=== PATIENT | female | born 1960 | race Caucasian/White ===

== ENCOUNTER 2017-03-24 00:40 | Emergency (ER) | payer MEDICARE ==
[~2017-03-24] VITALS: Ht 157.5 cm; Wt 59.0 kg
[~2017-03-24 00:40] MED LIST: ACCU FS; GLIP5TAB13 PO; METFORMIN HYDROCHLORIDE PO; PIOG30TA PO
--- NOTE | 2017-03-24 00:40 | NUR ---
BIB [place] [facility] TO ER BED 8
[2017-03-24 00:48] VITALS: BP 134/100
--- NOTE | 2017-03-24 00:48 | NUR ---
Patient being evaluated by physician at bedside.
--- NOTE | 2017-03-24 00:54 | NUR ---
56 Y/O F AMADOR WILSON FOR PREBOOK CLEARANCE. PT ETOH, MED HX TBA, DM. NO S/S OF DISTRESS NOTED, ER MADE AWARE.
--- NOTE | 2017-03-24 01:00 | NUR ---
ER MD EVALUATING PT AT BEDSIDE.
[2017-03-24] MEDS ORDERED: INSULIN HUMAN REGULAR 100 UNITS/ML 10 ML VIAL SUBQ ONE (01:05)
[2017-03-24 01:25] VITALS: BP 134/100
--- NOTE | 2017-03-24 01:25 | NUR ---
Patient discharged BY DR HAUSER with v/s stable. Written and verbal after care instructions given and explained BY ER MD. Patient alert, oriented and verbalized understanding of instructions. Police with in custody. All questions addressed prior to discharge. ID band removed. Patient advised to follow up with PMD. Rx of METFORMIN AND HUMALOG given. Patient educated on indication of medication including possible reaction and side effects. Opportunity to ask questions provided and answered.
== END 2017-03-24 01:25 ==
LOC: MED 00:40
DX: Z02.89 Encounter for other administrative examinations (principal); F10.129 Alcohol abuse with intoxication, unspecified; E11.9 Type 2 diabetes mellitus without complications; Z88.8 Allergy status to other drugs, medicaments and biological substances; I10 Essential (primary) hypertension
CPT/HCPCS: 96372; 99283; J1815

== ENCOUNTER 2017-08-21 15:36 | Inpatient (IN) | payer MEDICARE ==
[~2017-08-21] VITALS: Ht 149.9 cm; Wt 54.9 kg
--- NOTE | 2017-08-21 15:39 | NUR ---
PT BIBA ON RESTRAINTS FOR ALOC TO BED 10
--- NOTE | 2017-08-21 15:40 | NUR ---
PT BIB AMBULANCE, PT WAS SEEN BY POLICE TRYING TO WALK IN THE MIDDLE OF THE STREET. PT WAS ASKING FOR DIRECTIONS TO [facility], SHE WANTED TO WALK THERE.PT UNABLE TO SAY WHEN SHE HAD EATTEN LAST AND B/S AT THIS TIME IS 535. PT ABLE TO TRANSFER SELF TO [facility]. PT REFUSES TO PUT ON GOWN AND WANTS TO LEAVE. PT IS VISUALLY AND AUDITORILY IMPAIRED.DR GRACIA IS PLACING PT ON A 5150 HOLD AT THIS TIME. Addendum: 08/21/17 at 1603 by [email or web address] PT WAS ALREADY PLACED ON 5150 HOLD WHEN BROUGHT IN BY AMBULANCEDUE TO [facility] AND ENDAGERING HERSELF
[2017-08-21 15:44] VITALS: BP 172/92
--- NOTE | 2017-08-21 16:10 | NUR ---
ambulatory with help to restroom steady gait---
[2017-08-21] MEDS: NACL 0.9% 1,000 ML IV SCH ×2 (16:17→22:23)
--- NOTE | 2017-08-21 16:17 | NUR ---
returned from restroom ambulatory unassisted, steady gait
[2017-08-21] MEDS ORDERED: ONDANSETRON 4 MG/2 ML VIAL IVP PRN (16:20)
[2017-08-21] MEDS ORDERED: ACETAMINOPHEN 325 MG TAB PO PRN (16:20)
--- NOTE | 2017-08-21 16:21 | NUR ---
PT ABLE TO AMBULATE WITH ASSISTANCE AND PROVIDED URINE. SHE HAS BEEN ABLE TO TELL STAFF HER NAME WHERE SHE IS AND WHAT TIME OF DAY.
--- NOTE | 2017-08-21 16:29 | NUR ---
ATTEMPTED TO PERFORM AN EKG ON THE PT. PT STATED SHE DID NOT WANT ME TO PERFORM EKG ON HER. ASKED PT IF SHE WOULD BE MORE COMFORTABLE IF A FEMALE PERFORMED THE EKG ON HER AND SHE STATED THAT SHE DOES NOT WANT THE EKG TO BE PERFORMED BY ANYBODY.
[2017-08-21] MEDS ORDERED: LISINOPRIL 20 MG TAB PO SCH (16:30)
[2017-08-21 16:33] LABS: APPEARANCE,URINE CLEAR (CLEAR); BILIRUBIN,URINE NEGATIVE (NEGATIVE); BLOOD, URINE NEGATIVE (NEGATIVE); LEUKOCYTE ESTERASE ,URINE NEGATIVE (NEGATIVE); NITRITE, URINE NEGATIVE (NEGATIVE); UGLUCOSE 3+ (NEGATIVE)
[2017-08-21 16:40] LABS: BARBITURATE, URINE NEG. ng/ml (NEG <=200); BENZODIAZEPINE, URINE NEG. ng/mL (NEG <=200); CANNABINOID, URINE NEG. ng/mL (NEG <=50); COCAINE, URINE NEG. ng/mL (NEG <=300); OPIATE, URINE NEG. ng/mL (NEG <=2000); PHENCYCLIDINE SCREEN,URINE NEG. ng/mL (NEG <=25)
[2017-08-21 16:50] LABS: COLOR,URINE STRAW (YELLOW)
[2017-08-21] MEDS ORDERED: DEXTROSE 50% 50 ML SYR IVP PRN (17:10)
[2017-08-21] MEDS ORDERED: MECLIZINE 25 MG TAB PO PRN (17:10)
--- NOTE | 2017-08-21 17:33 | NUR ---
PT REFUSES IV INSERTION, ASKED X2 AND STILLL REFUSES
[2017-08-21 17:45] VITALS: BP 141/67
--- NOTE | 2017-08-21 17:45 | NUR ---
PATIENT ARRIVED ON MST UNIT FROM ER BED/RWINDSOR. ABLE TO AMBULATE WITH ASSIST AND ROLLATOR AT BEDSIDE. NO DISTRESS NOTED. RESPIRATIONS EVEN, UNLABORED, ON ROOM AIR. AAOX3, AGITATED MOOD, VERBALLY ABUSIVE. SKIN COLOR APPROPRIATE TO ETHNICITY, WARM TO TOUCH. SKIN IS INTACT. ABDOMEN SOFT, NON-DISTENDED. NO IV SITE DUE TO PATIENT REFUSING PER ER NURSE REPORTS. BLOOD SUGAR CHECKED AND IT WAS 562. HUMALOG INSULIN GIVEN 20 UNITS VIA SUB-Q ON LUARM PER MD ORDERS AND CO-SIGNED BY CARLYLE MCMULLEN. ORIENTED PATIENT TO ROOM AND CALL LIGHT. REVIEWED PLAN OF CARE WITH PATIENT. PATIENT VERBALIZED UNDERSTANDING. REINFORCEMENT NEEDED. SAFETY MEASURES IN PLACE, CALL LIGHT WITHIN REACH. WILL CONTINUE TO MONITOR.
--- NOTE | 2017-08-21 17:49 | NUR ---
Patient will be admitted to care of DR MORRISON. Admited to TELE. Will go to room 107A. Belongings list completed. Report to CHARLEY TADEO.
--- NOTE | 2017-08-21 18:30 | NUR ---
RADIOLOGIST AT BEDSIDE PERFORMING ULTRASOUNDS. WILL CONTINUE TO MONITOR.
--- NOTE | 2017-08-21 19:34 | NUR ---
ABG not done because patient refused and is currently combative and argumentative. Patient stable on room air SP02 96 heart rate 102. No resp distress. RN and Doctor notified and aware.
--- NOTE | 2017-08-21 19:35 | NUR ---
GAVE REPORT TO SORTING MACHINE OPERATOR NURSE FOR CONTINUITY OF CARE. PATIENT IN STABLE CONDITION.
--- NOTE | 2017-08-21 19:35 | NUR ---
RECEIVED REPORT FROM DAY SHIFT NURSE CHARLEY-RN. PT ON 5150 HOLD. NEEDING TO BE CHANGED TO ROOM 109B. PT AOX3-CONFUSED AND VERBALLY ABUSING. AMBULATORY WITH ROLEATOR. SKIN INTACT. PT REFUSED IV, ON ROOM AIR. ON CCHO 60 DIET. CURRENTLY RECEIVING ULTRASOUND AT BEDSIDE. NO S/S OF RESPIRATORY DISTRESS OR DISCOMFORT NOTED AT THIS TIME. WILL CONTINUE TO MONITOR.
--- NOTE | 2017-08-21 19:50 | NUR ---
CODE HARRISON. PT YELLING AND CURSING AT STAFF NOT WANTING TO BE IN NEW ROOM BECAUSE THERE IS NO TV. PT WHEELED HER BELONGINGS ON ROLEATER WALKER BACK TO OLD BEDROOM. SECURITY WAS CALLED TO HELP HANDLE THE SITUATION. DOCTOR NOTIFIED. RX NICHOLAS.
[2017-08-21] MEDS ORDERED: HALOPERIDOL IM 5 MG/ML VIAL IM ONE ×2 (19:55→20:20)
--- NOTE | 2017-08-21 19:55 | NUR ---
PT ON RESTRAINTS. WILL CONTINUE TO MONITOR.
--- NOTE | 2017-08-21 20:00 | NUR ---
PT ALSO REFUSING EKG LEADS TO BE MONITORED WHILE ON TELE UNIT. WILL CONTINUE TO MONITOR.
--- NOTE | 2017-08-21 20:00 | NUR ---
PT REFUSING MEDICATION. PT REFUSING VITAL SIGNS. PT REFUSING IV. PT REFUSING LAB DRAW (PRINTER SLOTTER HELPER AND CBC) REQUESTED BY DR. DAVEY.
[2017-08-21] MEDS ORDERED: HALOPERIDOL IM 5 MG/ML VIAL ONE (20:01)
[2017-08-21] MEDS: DOCUSATE SODIUM 100 MG GELCAP PO SCH (20:31)
--- NOTE | 2017-08-21 21:00 | NUR ---
PT NO LONGER ON RESTRAINTS. PT TOLERATED WELL. NO INJURIES. WILL CONTINUE TO MONITOR.
--- NOTE | 2017-08-21 21:30 | NUR ---
PT STILL REFUSING SCHEDULED MEDICATIONS. LAB WAS IN HER ROOM AND WAS UNSUCCESSFUL AT LAB DRAW. PT REMOVED BOTH NEEDLES AFTER AGREEING TO THE LAB DRAW. WILL CONTINUE TO MONITOR.
[2017-08-21] MEDS: BLOOD GLUCOSE MONITORING 1 DEV DEV FS SCH (21:47)
[2017-08-21] MEDS ORDERED: HALOPERIDOL IM 5 MG/ML VIAL IM PRN (22:15)
--- NOTE | 2017-08-22 | NUR ---
PT REFUSED VITAL SIGNS. LAB ASKED AGAIN IF SHE COULD TAKE BLOOD DRAW AND PT REFUSED STATING, "I WANT TO GO TO SLEEP." WILL CONTINUE TO MONITOR.
--- NOTE | 2017-08-22 01:10 | NUR ---
PT SLEEPING AT THIS TIME BUT EASILY TO AROUSE.
[2017-08-22] MEDS: NACL 0.9% 1,000 ML IV SCH ×5 (03:23→23:23)
--- NOTE | 2017-08-22 03:30 | NUR ---
PT CONTINUES TO SLEEP. WILL CONTINUE TO MONITOR.
[2017-08-22 04:00] VITALS: BP 141/78
--- NOTE | 2017-08-22 04:00 | NUR ---
AMBULATED PT WITH ASSIST TO USE RESTROOM. VITAL SIGNS TAKEN. PT TOLERATED WELL DESPITE SAYING THAT THE BP CUFF WAS TOO TIGHT WHILE THE AUTOMATIC MACHINE WAS TAKING HER BP. PT STILL REFUSES, IV, LAB WORK, AND EKG LEADS. PT WENT BACK TO BED TO SLEEP. WILL CONTINUE TO MONITOR.
[2017-08-22] MEDS: BLOOD GLUCOSE MONITORING 1 DEV DEV FS SCH ×5 (06:40→21:07)
--- NOTE | 2017-08-22 06:41 | NUR ---
BLOOD GLUCOSE 360. PT REFUSED INSULIN COVERAGE. WILL CONTINUE TO MONITOR.
--- NOTE | 2017-08-22 07:28 | NUR ---
ENDORSED PT CARE TO DAY SHIFT NURSE KAYLEIGH. PT IN STABLE CONDITION.
--- NOTE | 2017-08-22 07:29 | NUR ---
RECEIVED REPORT FROM PM NURSE. PT SITTING ON BED WITH BREAKFAST TRAY IN FRONT. AOX2. COOPERATIVE AT THIS TIME.SKIN INTACT. NO IV SITE DUE TO PT REFUSAL. REFUSES AM LAB DRAWS. NO THOUGHTS OF HARMING SELF AT THIS TIME. REVIEW PLAN OF CARE WITH PT. SAFETY MEASURES IN PLACE, 1:1 SITTER AT BEDSIDE. WILL CONTINUE TO MONITOR.
[2017-08-22 08:00] VITALS: BP 124/62
[2017-08-22 08:26] LABS: EOSINOPHILS # (AUTO) 0.1 K/uL (0-0.4); LYMPHOCYTES # (AUTO) 0.9 K/uL (2.5-16.5); MONOCYTES # (AUTO) 0.4 K/uL (0.8-1.0)
[2017-08-22 08:37] LABS: BASOPHILS # (AUTO) 0.1 K/uL (0.00-0.22); BASOPHILS % (AUTO) 2.4 % (0.0-2.0); EOSINOPHILS % (AUTO) 1.2 % (0.0-4.0); HEMATOCRIT 40.2 % (36-48); HEMOGLOBIN 13.5 g/dL (12.0-16.0); MEAN CORPUSCULAR HEMOGLOBIN 30 pg (27-31); MEAN CORPUSCULAR HGB CONC 34 g/dL (33-37); MEAN CORPUSCULAR VOLUME 90.1 fL (80-94); MONOCYTES % (AUTO) 6.9 % (1.7-9.3); NEUTROPHILS % (AUTO) 73.8 % (42.2-75.2); RED BLOOD CELL COUNT(AUTO) 4.46 MIL/uL (4.20-5.40); WHITE BLOOD COUNT (AUTO) 5.5 K/uL (4.8-10.8)
[2017-08-22 08:46] LABS: ANION GAP 12.7 (8-16); CARBON DIOXIDE 22.2 mmol/L (21-32); CREATININE 0.7 mg/dL (0.6-1.3); POTASSIUM 3.9 mmol/L (3.5-5.1)
[2017-08-22] MEDS: DOCUSATE SODIUM 100 MG GELCAP PO SCH ×2 (09:00→20:54)
[2017-08-22 09:02] LABS: LYMPHOCYTES % (AUTO) 15.7 % (20.5-51.1); PLATELET COUNT (AUTO) 102 K/uL (140-450)
[2017-08-22 09:21] LABS: MAGNESIUM 1.5 mg/dL (1.8-2.4); PHOSPHORUS 3.3 mg/dL (2.5-4.9)
[2017-08-22] MEDS: metFORMIN 850 MG TAB PO SCH ×2 (10:13→18:25)
[2017-08-22] MEDS: LISINOPRIL 20 MG TAB PO SCH (10:15)
--- NOTE | 2017-08-22 10:23 | NUR ---
PT AGITATED MOOD. REFUSED STOOL SOFTENER. TWO OTHER SCHEDULED MEDICATION ADMINISTERED.PT REFUSES ULTRA ABD TODAY, DO NOT WANT TO SKIP LUNCH. SCHEDULED FOR TOMORROW MORNING IN FIRST HOUR. PT EXPLAINED TO BE KEPT NPO AFTER MIDNIGHT FOR ULTRASOUND. PT AGREED AND VERBALIZED THE UNDERSTANDING. PT WITH 1:1 SITTER. PT SAFETY MEASURE IN PLACE. WILL CONTINUE TO MONITOR.
[2017-08-22] MEDS ORDERED: MAG SULF 2000 MG/WATER PREMIX 100 ML IV SCH (11:30)
--- NOTE | 2017-08-22 11:57 | NUR ---
PATIENT HAS BEEN SCREENED AND CATEGORIZED MODERATE NUTRITION RISK. PATIENT WILL BE SEEN WITHIN 3-5 DAYS OF ADMISSION. 08/24/17 - 08/26/17 LIZ SAENZ MBA, RD
--- NOTE | 2017-08-22 12:30 | NUR ---
PATIENT SITTING IN BED WITH LUNCH TRAY IN FRONT. NO DISTRESS NOTED. IN AGITATED MOOD AND VERBALLY ABUSIVE. CURRENTLY REFUSES VITAL SIGNS TAKEN UNTIL SHE FINISHES HER LUNCH. WILL CONTINUE TO MONITOR.
--- NOTE | 2017-08-22 13:06 | NUR ---
RADIOLOGIST AT BEDSIDE PERFORMING SCANS. PATIENT COOPERATIVE AT THIS TIME. WILL CONTINUE TO MONITOR.
[2017-08-22 13:30] LABS: ALBUMIN 2.8 g/dL (3.4-5.0); BILIRUBIN,DIRECT 0.2 mg/dL (0.0-0.3); TOTAL BILIRUBIN 0.7 mg/dL (0.0-1.0)
[2017-08-22] MEDS ORDERED: MAGNESIUM OXIDE 400 MG TAB PO SCH (13:30)
[2017-08-22] MEDS: INSULIN LISPRO SLIDING SCALE 100 UNITS/ML VIAL SUBQ PRN ×3 (14:19→21:05)
--- NOTE | 2017-08-22 15:00 | NUR ---
PATIENT LYING IN BED. NO DISTRESS NOTED. CONTINUES TO BE IN AGITATED MOOD. CONDITION UNCHANGED. 1:1 SITTER AT BEDSIDE. WILL CONTINUE TO MONITOR.
[2017-08-22 16:00] VITALS: BP 143/63
--- NOTE | 2017-08-22 17:30 | NUR ---
PATIENT LYING IN BED SLEEPING, AROUSABLE BY VOICE. NO DISTRESS NOTED. DENIES ANY PAIN. CONDITION UNCHANGED. WILL CONTINUE TO MONITOR.
--- NOTE | 2017-08-22 19:20 | NUR ---
ENDORSED TO PM NURSE. PT IN STABLE CONDITION.
--- NOTE | 2017-08-22 19:21 | NUR ---
Patient's Plan of Care was discussed and reviewed with NEWS PHOTOGRAPHER: CATIE CLEMONS
--- NOTE | 2017-08-22 19:21 | NUR ---
RECD. SLEEPING COMFORTABLY IN BED, RESPIRATION EVEN AND UNLABORED. NO AGITATION NOTED. NO APPEARANCE OF DISCOMFORT, 0. 1:1 SITTER NEAR DOOR MONITORING PATIENT BEHAVIOR. WILL CONTINUALLY MONITOR PATIENT AND ENSURE SAFETY THROUGHOUT THE SHIFT.
--- NOTE | 2017-08-22 19:45 | NUR ---
WOKE UP AND REQUESTED A BLANKET FROM SITTER AND WENT BACK TO SLEEP. WAKEN UP AND PLAN OF CARE FOR THE SHIFT DISCUSSED. AGREED BUT REFUSED VITAL SIGNS TO BE TAKEN, WANTS LATER.
[2017-08-22] MEDS: QUEtiapine FUMARATE 25 MG TAB PO SCH (20:51)
--- NOTE | 2017-08-22 21:05 | NUR ---
DUE PO MEDICATIONS GIVEN BUT REFUSED INSULIN COVERAGE,STATED SHE HAD ALREADY TWICE, EXPLAINED THAT IS DIFFERENT DOES NOT ACCEPT ANY EXPLANATION, STILL REFUSING.
--- NOTE | 2017-08-22 21:46 | NUR ---
SLEEPING COMFORTABLY IN BED.
[2017-08-23] VITALS: BP 138/69
--- NOTE | 2017-08-23 01:30 | NUR ---
AWAKE, FIXING HER GOWN AND BRASSIERE, REFUSED TO BE HELP, SAYING BAD WORDS.
--- NOTE | 2017-08-23 03:00 | NUR ---
INQUIRED TO ANDREA OF RADIOLOGY WHAT TIME WILL THE US OF ABDOMEN BE DONE TODAY, STATED AT 0630.
[2017-08-23] MEDS: NACL 0.9% 1,000 ML IV SCH ×4 (04:23→20:37)
[2017-08-23] MEDS: BLOOD GLUCOSE MONITORING 1 DEV DEV FS SCH ×4 (05:24→20:38)
[2017-08-23] MEDS: INSULIN LISPRO SLIDING SCALE 100 UNITS/ML VIAL SUBQ PRN ×3 (05:26→17:57)
--- NOTE | 2017-08-23 05:26 | NUR ---
REFUSED INSULIN COVERAGE AT FIRST BUT AFTER A WHILE, AGREED.
--- NOTE | 2017-08-23 05:35 | NUR ---
REFUSED AM LAB DRAW BY [employer]. STATED SHE'S GOING HOME TOMORROW.
--- NOTE | 2017-08-23 06:26 | NUR ---
STILL SLEEPING COMFORTABLY, CONDITION REMAIN STABLE. WILL ENDORSE TO AM NURSE FOR CONTINUITY OF CARE.
--- NOTE | 2017-08-23 06:35 | NUR ---
ADOLFO CAME TO DO THE COMPLETE US OF ABDOMEN BUT PATIENT REFUSED. WILL INFORM .
--- NOTE | 2017-08-23 06:40 | NUR ---
VERBALLY ABUSIVE, CALLING NURSES BITCH. DARING NURSE TO CALL THE POLICE.
--- NOTE | 2017-08-23 06:48 | NUR ---
INFORMED DR. DAVEY, PATIENT REFUSED US OF ABDOMEN AND BLOOD DRAW THIS MORNING.
--- NOTE | 2017-08-23 07:00 | NUR ---
WENT BACK TO SLEEP IN BED.
--- NOTE | 2017-08-23 07:20 | NUR ---
ENDORSED TO AM NURSES FOR CONTINUITY OF CARE.
--- NOTE | 2017-08-23 07:21 | NUR ---
RECEIVED REPORT FROM PM NURSE AT [facility]. PT AOX3. PT IN GOOD MOOD. COOPERATIVE , CALM AT THE TIME. SAFETY MEASURES IN PLACE. WILL CONTINUE TO MONITOR.
[2017-08-23 08:00] VITALS: BP 149/68
--- NOTE | 2017-08-23 09:05 | NUR ---
PT ADMINISTERED SCHEDULED PO MEDICATION. REFUSED HER MEDICATION EARLIER. PT REFUSES IVF. PT COOPERATIVE AND CALM AT THE TIME. WILL CONTINUE TO MONITOR.
[2017-08-23] MEDS: DOCUSATE SODIUM 100 MG GELCAP PO SCH ×2 (09:06→20:42)
[2017-08-23] MEDS: LISINOPRIL 20 MG TAB PO SCH (09:06)
[2017-08-23] MEDS: metFORMIN 850 MG TAB PO SCH ×2 (09:07→17:57)
--- NOTE | 2017-08-23 12:45 | NUR ---
CM NOTE CLINICAL INFORMATION FAXED TO [facility] / FAX# [phone], C: [phone]
--- NOTE | 2017-08-23 14:41 | NUR ---
CM NOTE INITIAL REVIEW FAXED TO [facility] / FAX# [phone], C: #[phone]
[2017-08-23 16:00] VITALS: BP 147/67
--- NOTE | 2017-08-23 17:12 | NUR ---
PATIENT REQUESTING TO SHOWER. SHAWNA FRAESR TOOK HER TO DESIGNATED SHOWER VIA WHEELCHAIR, AND WILL ASSIST PATIENT WITH STANDBY ASSISTANCE IN SHOWER.
--- NOTE | 2017-08-23 19:18 | NUR ---
ENDORSED PATIENT TO COFFEE MAKER RN FOR CONTINUITY OF CARE. PATIENT IN STABLE CONDITION.
--- NOTE | 2017-08-23 19:25 | NUR ---
RECEIVED REPORT FROM DAY SHIFT RN, PATIENT RESTING IN BED, AWAKE AND RESPONSIVE, ONE ON ONE SITTER SITTING OUTSIDE THE ROOM. NO IV ACCESS NOTED, PATIENT REFUSED IV WHEN I OFFERED TO START NEW IV. PATIENT IS CALM AT THIS MOMENT. SAFETY MEASURE ENSURED ,WILL CONTINUE TO MONITOR.
[2017-08-23] MEDS: QUEtiapine FUMARATE 25 MG TAB PO SCH (20:41)
--- NOTE | 2017-08-23 20:46 | NUR ---
BLOOD SUGAR 371, PATIENT REFUSED HUMALOG. EDUCATED ON THE COMPLICATION OF HYPERGLYCEMIA, BUT PATIENT STILL REFUSED, AND YELLED," LOOK, I DON'T WANT IT." DR. MARTINEZ NOTIFIED. WILL CONTINUE TO MONITOR.
[2017-08-24] VITALS: BP 150/81
[2017-08-24] MEDS: NACL 0.9% 1,000 ML IV SCH ×5 (00:23→20:23)
--- NOTE | 2017-08-24 00:38 | NUR ---
PATIENT RESTING IN BED, NO S/S OF DISTRESS NOTED, 1:1 SITTER BY THE DOOR. SAFETY MEASURE ENSURED, WILL CONTINUE TO MONITOR.
--- NOTE | 2017-08-24 02:35 | NUR ---
PATIENT IS SLEEPING, NO S/S OF DISTRESS NOTED, RESPIRATION EVEN AND UNLABORED, 1:1 SITTER SITTING BY THE DOOR. SAFETY MEASURE ENSURED, WILL CONTINUE TO MONITOR.
--- NOTE | 2017-08-24 03:12 | NUR ---
at this time there are no vacancy at any of the facilities packet was faxed to , the following facilities are [facility] , [facility] , and [facility] RN made aware. Will continue calling thru the shift for placement.
--- NOTE | 2017-08-24 04:25 | NUR ---
NO CHANGE IN CONDITION, PATIENT IS SLEEPING, NO S/S OF DISTRESS NOTED, RESPIRATION EVEN AND UNLABORED, 1:1 SITTER SITTING BY THE DOOR. SAFETY MEASURE ENSURED, WILL CONTINUE TO MONITOR.
--- NOTE | 2017-08-24 06:09 | NUR ---
PATIENT REFUSED BLOOD SUGAR CHECK, EDUCATED ON THE COMPLICATION OF HYPERGLYCEMIA AND HYPOGLYCEMIA, PATIENT YELLED AT ME," GET OUT, I DON'T WANT IT. I DON'T LIKE YOU IN MY ROOM. GET OUT." DR. MARTINEZ IS AWARE. 1:1 SITTER IS SITTING BY THE DOOR. SAFETY MEASURE ENSURED, WILL CONTINUE TO MONITOR.
[2017-08-24] MEDS: BLOOD GLUCOSE MONITORING 1 DEV DEV FS SCH ×4 (07:18→20:53)
--- NOTE | 2017-08-24 07:18 | NUR ---
BLOOD SUGAR 340, BUT PATIENT REFUSED INSULIN. EDUCATED ON THE COMPLICATIONS BUT PATIENT STILL REFUSED. WILL CONTINUE TO MONITOR.
--- NOTE | 2017-08-24 07:20 | NUR ---
ENDORSED PLAN OF CARE TO DAY SHIFT RN. PATIENT IS IN STABLE CONDITION.
--- NOTE | 2017-08-24 07:20 | NUR ---
RECEIVED BEDSIDE REPORT FROM NIGHTSHIFT NURSE AT BEDSIDE. PATIENT PRESENTS IN RIGHT LATERAL LYING POSITION. PATIENT AROUSABLE TO NAME BUT IS ASLEEP. PATIENT HAS NO IV ACCESS. PATIENT SHOWS NO SIGNS OF RESPIRATORY DISTRESS OR RESPIRATORY DEPRESSION. NO SIGNS OF PAIN AT THIS TIME. PATIENT'S BED IN LOWEST POSITION. PATIENT HAS 1:1 SITTER. UPDATED BOARD IN PATIENTS ROOM AND APPROPRIATE SIGNS PLACED OUTSIDE OF PATIENT'S ROOM. PATIENT'S ROOM LOCATED NEAR NURSING STATION. WILL CONTINUE TO MONITOR PATIENT.
[2017-08-24 08:00] VITALS: BP 140/76
--- NOTE | 2017-08-24 08:41 | NUR ---
PATIENT TOOK GLUCOPHAGE AM MEDICATION. PATIENT REFUSED COLACE AND LISINOPRIL. WILL CONTINUE TO MONITOR PATIENT.
[2017-08-24] MEDS: metFORMIN 850 MG TAB PO SCH ×2 (08:49→17:04)
[2017-08-24] MEDS: LISINOPRIL 20 MG TAB PO SCH (08:51)
[2017-08-24] MEDS: DOCUSATE SODIUM 100 MG GELCAP PO SCH ×2 (08:51→20:53)
--- NOTE | 2017-08-24 09:33 | NUR ---
No beds available at this time. Will continue to follow up.
--- NOTE | 2017-08-24 09:46 | NUR ---
PATIENT AWAKE AT THIS TIME. PATIENT DOES NOT COMPLAIN OF PAIN. PATIENT IN HIGH FOWLERS POSITION IN BED. WILL CONTINUE TO MONITOR PATIENT.
--- NOTE | 2017-08-24 10:23 | NUR ---
PATIENT HAS NO IV ACCESS. DID NOT ADMINISTER ANY FLUIDS.
--- NOTE | 2017-08-24 11:28 | NUR ---
MARY FROM [facility] CALLED AND STATED THAT SHE WILL INFORM DR. BROWN FOR THE PSYCH REEVALUATION.
--- NOTE | 2017-08-24 11:35 | NUR ---
PATIENT IS LAYING IN BED AT THIS TIME. NO COMPLAINTS OF PAIN OR ANY SIGNS OF RESPIRATORY DISTRESS OR RESPIRATORY DEPRESSION. WILL CONTINUE TO MONITOR PATIENT.
--- NOTE | 2017-08-24 13:12 | NUR ---
PATIENT'S BLOOD SUGAR IS 513. PATIENT REFUSED INSULIN FOR HER HIGH BLOOD SUGAR. NOTIFIED DR. MUÑIZ WILL SEE PATIENT. WILL CONTINUE TO MONITOR PATIENT.
[2017-08-24] MEDS ORDERED: metFORMIN 850 MG TAB PO SCH (13:37)
--- NOTE | 2017-08-24 13:45 | NUR ---
ADMINISTERED GLUCOPHAGE 850 MG TO PATIENT. WILL REASSESS PATIENT'S BLOOD SUGAR.
--- NOTE | 2017-08-24 15:30 | NUR ---
PATIENT RESTING IN BED. NO COMPLAINTS OF PAIN. NO RESPIRATORY DISTRESS OR RESPIRATORY DEPRESSION.
[2017-08-24 16:00] VITALS: BP 116/70
[2017-08-24] MEDS ORDERED: PIOGLITAZONE 30 MG TAB PO SCH (16:29)
--- NOTE | 2017-08-24 16:55 | NUR ---
DR. BROWN SAW PATIENT. DR. BROWN NOTES READ THAT PATIENT DOES NOT MEET CRITERIA FOR 5150 HOLD. WAITING FOR MEDICAL CLEARANCE AND PLACEMENT FOR PATIENT.
[2017-08-24] MEDS: glipiZIDE 5 MG TAB PO SCH (17:04)
--- NOTE | 2017-08-24 17:04 | NUR ---
PATIENT'S BLOOD SUGAR IS AT BS 404. ADMINISTERED METFORMIN, GLUCOTROL, AND ACTOS. PATIENT TOLERATED WELL. WILL REASSESS PATIENT'S BLOOD SUGAR.
--- NOTE | 2017-08-24 19:22 | NUR ---
GAVE REPORT TO NIGHTSHIFT NURSE AT BEDSIDE. PATIENT IN STABLE CONDITION.
--- NOTE | 2017-08-24 19:23 | NUR ---
RECEIVED REPORT FROM DAY NURSE, PT IN STABLE CONDITION. NO S/S OF DISTRESS NOTED. PT IS ON RA. NO IV ACCESS AT THIS TIME, PT REFUSING. SKIN WARM AND DRY TO TOUCH, COLOR WNL. RR EVEN/UNLABORED. INITIAL ASSESSMENT COMPLETED, PLAN OF CARE DISCUSSED WITH PT, ALL SAFETY PRECAUTIONS MET, CALL LIGHT WITHIN REACH, WILL CONTINUE TO MONITOR.
[2017-08-24] MEDS: QUEtiapine FUMARATE 25 MG TAB PO SCH (20:53)
--- NOTE | 2017-08-24 20:54 | NUR ---
PTS BS 412, INFORMED DR. MARTINEZ PER SLIDING SCALE ORDERS. PT REFUSING ANY INSULIN OR MEDS AT THIS TIME. PT STATES, "I DON'T TAKE ANY NIGHT TIME MEDS, GET THE HELL OUT OF MY ROOM, YOU KNOW THIS, MY BLOOD SUGAR IS NOT HIGH, GET OUT NOW." PT VISIBLY AGITATED. MADE DR. MARTINEZ AWARE OF PTS REFUSAL
--- NOTE | 2017-08-24 20:55 | NUR ---
PT EDUCATED ON RISKS OF NOT TAKING MEDICATION WELL BENEFITS, PT STATES, "I DON'T CARE, NOTHING IS WRONG WITH ME, LET ME SLEEP."
--- NOTE | 2017-08-24 21:15 | NUR ---
DR. MARTINEZ IN TO SEE PT. SHE INFORMED PT SHE NEEDS TO TAKE INSULIN BECAUSE HER BS IS NOT CONTROLLED. PT STILL REFUSING AT THIS TIME AND WILL NOT TAKE ANYTHING TONIGHT
[2017-08-25] VITALS: BP 102/69
--- NOTE | 2017-08-25 | NUR ---
NO S/S OF DISTRESS NOTED. RR EVEN/UNLABORED. VSS. WILL CONTINUE TO MONITOR
[2017-08-25] MEDS: NACL 0.9% 1,000 ML IV SCH ×5 (01:23→21:15)
--- NOTE | 2017-08-25 03:12 | NUR ---
NO S/S OF DISTRESS NOTED. RR EVEN/UNLABORED. VSS. WILL CONTINUE TO MONITOR
--- NOTE | 2017-08-25 05:54 | NUR ---
IN TO CHECK PTS BS WITH DR. MARTINEZ. PT AGREED TO LET ME, WHEN I ATTEMPTED TO PUT BLOOD ON THE STRIP PT TOOK HER HAND BACK AND AND STATED, "FUCK YOU, GET OUT." PT REFUSED TO LET ME CHECK IT AND PT REFUSES MORNING MEDICATION. DR. MARTINEZ ATTEMPTED TO TALK TO PT BUT PT CONTINUES TO YELL, "FUCK YOU, GET OUT."
[2017-08-25] MEDS: glipiZIDE 5 MG TAB PO SCH ×2 (06:30→16:37)
[2017-08-25] MEDS: BLOOD GLUCOSE MONITORING 1 DEV DEV FS SCH ×4 (06:30→21:05)
--- NOTE | 2017-08-25 07:14 | NUR ---
REPORT GIVEN TO DAY NURSE FOR CONTINUITY OF CARE, PT IN STABLE CONDITION.
--- NOTE | 2017-08-25 07:14 | NUR ---
RECEIVED REPORT FROM NIGHTSHIFT NURSE AT BEDSIDE. PATIENT IS ASLEEP AT THIS TIME. PATIENT AROUSABLE TO NAME. PATIENT DOES NOT WANT TO BE BOTHERED AT THIS TIME. PATIENT SHOWS NO SIGNS OF RESPIRATORY DISTRESS OR RESPIRATORY DEPRESSION. WILL ATTEMPT TO CHECK BLOOD GLUCOSE WHEN PATIENT WAKES UP. UPDATED BOARD IN PATIENT'S ROOM. WILL CONTINUE TO MONITOR THE PATIENT.
[2017-08-25 08:00] VITALS: BP 126/63
--- NOTE | 2017-08-25 08:31 | NUR ---
CM NOTE CONCURRENT REVIEW FAXED TO [facility] / FAX# [phone], PH# [phone] [address] EXT [phone]T [phone]
--- NOTE | 2017-08-25 08:33 | NUR ---
PATIENT BLOOD GLUCOSE AT 318. WILL PREPARE PATIENT'S BLOOD GLUCOSE MEDICATION. PATIENT DOES NOT WANT INSULIN. WILL CONTINUE TO MONITOR PATIENT.
[2017-08-25] MEDS: LISINOPRIL 20 MG TAB PO SCH (08:50)
[2017-08-25] MEDS: PIOGLITAZONE 30 MG TAB PO SCH (08:50)
[2017-08-25] MEDS: metFORMIN 850 MG TAB PO SCH ×2 (08:50→16:37)
[2017-08-25] MEDS: DOCUSATE SODIUM 100 MG GELCAP PO SCH ×2 (09:00→21:09)
--- NOTE | 2017-08-25 11:53 | NUR ---
[address] MET [address] PT [address] DR MOE PRESENT. PT STATED WANTED TO SIGN AMA AND WHEN DR MOE INSTRUCTED PT ON RISKS AND CONSEQUENCES OF SIGNING AMA WITH ELEVATED BLOOD SUGAR AND HER REFUSAL TO HAVE INSULIN ADMINISTERED PT STATED THAT SHE WOULD ALLOW THE INSULIN TO BE ADMINISTERED. DISCUSSED WITH PT THAT SHE WILL NEED TO LEARN HOW TO CHECK HER BLOOD SUGAR AND HOW TO ADMINISTER THE INSULIN AND PT STATED THAT SHE WOULD. DISCUSSED WITH HER THAT IT MAY TAKE HER SOME TIME TO LEARN ABOUT DM AND TO GET HER BLOOD SUGAR DOWN TO A THERAPEUTIC LEVEL AND THAT I WOULD CONTACT INSURANCE REGARDING TRANSFER TO SNF TO CONTINUE WITH DIABETIC TEACHING AND MANAGEMENT AND PT IS AGREEABLE AT THIS TIME.
--- NOTE | 2017-08-25 11:54 | NUR ---
PATIENT RESTING IN BED AT THIS TIME. NO COMPLAINTS OF PAIN. WILL CONTINUE TO MONITOR PATIENT.
--- NOTE | 2017-08-25 11:56 | NUR ---
PATIENT REFUSED INSULIN. PATIENT BLOOD SUGAR IS 380. WILL NOTIFY DRHerb WILL CONTINUE TO MONITOR PATIENT.
--- NOTE | 2017-08-25 14:30 | NUR ---
ROWENA HUNT SPOKE WITH LUCAS ODONNELL CM [place] PH# [phone] EXT [phone] REGARDING POSSIBLE SNF PLACEMENT FOR DIABETIC MANAGEMENT AND SHE SAID THAT THIS WILL BE A HARD PLACEMENT BECAUSE OF PATIENT'S BEHAVIORAL ISSUES. PER LUCAS ODONNELL CM MO, SHE WILL FAX US THE LIST OF THEIR CONTRACTED SNF. CALLED BACK LUCAS ODONNELL MO AGAIN TWICE TO FOLLOW UP ON THE LIST OF THEIR CONTRACTED SNF FACILITIES AND SHE SAID THAT SHE WILL FAX THEIR SNF LIST. AT THIS TIME, WE HAVE NOT RECEIVED THE LIST OF CONTRACTED SNF FROM LUCAS ODONNELL. SPOKE WITH AV OF [facility] PH# [phone] AND SHE SAID TO FAX HER THE PACKET. FAXED CLINICAL PACKET TO [facility] AND I GAVE AV THE NUMBER TO THE NURSING STATION WHERE PATIENT IS IN CASE THEY DECIDE TO TAKE PATIENT AT A LATER TIME. SPOKE WITH NADEGE OF [facility] PH# [phone], NO FEMALE BEDS AVAILABLE AT THIS TIME. SPOKE WITH AV OF [facility] PH# [phone], NO FEMALE BEDS AVAILABLE AT THIS TIME.
--- NOTE | 2017-08-25 14:40 | NUR ---
CHECKED PATIENT'S BLOOD SUGAR. PATIENT'S BLOOD SUGAR AT 468. INFORMED DR. ALFARO OF PATIENT'S BLOOD SUGAR. SAID TO GIVE 10 UNITS AND THEN RECHECK.
[2017-08-25] MEDS: INSULIN LISPRO SLIDING SCALE 100 UNITS/ML VIAL SUBQ PRN ×2 (14:44→16:42)
--- NOTE | 2017-08-25 14:44 | NUR ---
GAVE 10 UNITS OF REGULAR INSULIN TO PATIENT. WILL CONTINUE TO MONITOR PATIENT.
--- NOTE | 2017-08-25 15:05 | NUR ---
CM NOTE PER [facility] CM MO, THEIR FAX IS NOT WORKING BUT THAT [facility] IS WILLING TO DO AN [place] IF THERE WILL BE AN ACCEPTING SNF WHICH IS NOT CONTRACTED WITH [facility]. FAXED INQUIRY TO AURELIA VILLAFANA AND KATIE RATLIFF. I ALSO GAVE THESE FACILITIES THE NUMBER TO [facility]ARE [facility] CM MO AND TO THE NURSING STATION WHERE PATIENT IS IN CASE THEY DECIDE TO TAKE THE PATIENT AT A LATER TIME. CHARGE NURSE ROSAMARIA WATTERS.
[2017-08-25 16:00] VITALS: BP 101/54
--- NOTE | 2017-08-25 17:22 | NUR ---
PATIENT ASLEEP AT THIS TIME. NO COMPLAINTS OF PAIN.
--- NOTE | 2017-08-25 19:48 | NUR ---
GAVE REPORT TO NIGHTSHIFT NURSE AT BEDSIDE. PATIENT IN STABLE CONDITION.
[2017-08-25 20:00] VITALS: BP 113/59
[2017-08-25] MEDS ORDERED: FLUCONAZOLE 100 MG TAB PO ONE (20:00)
--- NOTE | 2017-08-25 20:00 | NUR ---
RECEIVED PT FROM BRANDON RN PT AAOX2 COOPERATIVE FOLLOW COMMANDS NOT DISTRESS NOTED AMBULATORY ON IV ACCESS DR WATTERS
[2017-08-25] MEDS: QUEtiapine FUMARATE 25 MG TAB PO SCH (21:08)
--- NOTE | 2017-08-25 22:00 | NUR ---
PT REMAIN STABLE VOIDING WELL PT IS ASSISTED WITH MARY ANN THT SHE REQUEST GOOD APPETITE
--- NOTE | 2017-08-26 00:08 | NUR ---
PT SLEEPING WELL NOT DISTRESS NOTED REPORT WILLBE GIVEN TO JOYCE TADEO FOR CONTINUITY OF CARE
--- NOTE | 2017-08-26 00:10 | NUR ---
RECEIVED REPORT FROM RN. PT SLEEPING IN BED. AAO4, NO S/S OF ACUTE DISTRESS. CALL LIGHT WITHIN REACH. SAFETY MEASURES ENSURED. WILL CONTINUE. Addendum: 08/26/17 at 0121 by Leon Lofton RN AAOX2. PT DENIES PAIN
[2017-08-26] MEDS: NACL 0.9% 1,000 ML IV SCH ×3 (02:23→12:23)
--- NOTE | 2017-08-26 04:30 | NUR ---
PT SLEEPING IN BED. NO S/S OF ACUTE DISTRESS. CALL LIGHT WITHIN REACH. SAFETY MEASURES ENSURED. WILL CONTINUE TO MONITOR.
[2017-08-26] MEDS: BLOOD GLUCOSE MONITORING 1 DEV DEV FS SCH ×2 (06:45→11:59)
[2017-08-26] MEDS: glipiZIDE 5 MG TAB PO SCH (06:45)
--- NOTE | 2017-08-26 07:32 | NUR ---
ENDORSED PLAN OF CARE TO DAY RN.
--- NOTE | 2017-08-26 07:34 | NUR ---
RECEIVED REPORT FROM NIGHT NURSE AT PT BEDSIDE. PATIENT SLEEPING. EASILY AWAKENS. DENIES PAIN. NO S/S OF ACUTE RESPIRATORY DISTRESS NOTED. CONTINUES TO REFUSE IV ACCESS. ALERT TO SELF. ANSWERS QUESTIONS APPROPRIATELY. CALL LIGHT WITHIN REACH.
[2017-08-26 08:00] VITALS: BP 117/49
[2017-08-26] MEDS: metFORMIN 850 MG TAB PO SCH (09:39)
[2017-08-26] MEDS: PIOGLITAZONE 30 MG TAB PO SCH (09:39)
[2017-08-26] MEDS: LISINOPRIL 20 MG TAB PO SCH (09:39)
[2017-08-26] MEDS: DOCUSATE SODIUM 100 MG GELCAP PO SCH (09:39)
--- NOTE | 2017-08-26 10:20 | NUR ---
PATIENT AMBULATORY TO BATHROOM. DENIES DISCOMFORT. NO S/S OF ACUTE DISTRESS NOTED.
--- NOTE | 2017-08-26 11:11 | NUR ---
CM NOTE PER BRYNN OF [facility] PH# [phone] THEY ARE ACCEPTING PATIENT AND CAN GO TO [address], NUMBER TO CALL FOR REPORT PH# [phone], WHEN READY FOR DISCHARGE. PER [facility] PH# [phone] EXT [phone], FOR [facility] AUTH# [id number]*SNF AND FOR [facility] AUTH# [id number]*PTR. PER QUYEN OF [facility] PH# [phone], PATIENT WILL BE PICKED UP AT 12NOON TODAY GOING TO [facility]. CHARGE NURSE CARLOS A WATTERS.
[2017-08-26] MEDS ORDERED: HUMSLIDE SUBQ (11:40)
[2017-08-26] MEDS ORDERED: QUET25TA46 PO (11:45)
--- NOTE | 2017-08-26 12:00 | NUR ---
PATIENT REFUSED INSULIN COVERAGE. MD AWARE.
--- NOTE | 2017-08-26 12:20 | NUR ---
REPORT GIVEN TO CARLYLE CUNHA AT [facility] [place] PATIENT TO BE TRANSFERRED TO [facility].
--- NOTE | 2017-08-26 13:08 | NUR ---
[facility] HERE TO TAKE PATIENT. PATIENT REFUSED DISCHARGE INSTRUCTION TEACHING. REFUSED TRANSFER TO FACILITY. DR. MOE SPOKE WITH PATIENT REGARDING PATIENT'S DECISION TO SIGN OUT AGAINST MEDICAL ADVICE. PATIENT IS ALERT AND ORIENTED, VERY HUGHES ABOUT LEAVING WITHOUT ANY MEDICAL ASSISTANCE. PATIENT AMBULATED USING HER WALKER WITHOUT ADDITIONAL ASSISTANCE.
--- NOTE | 2017-08-26 13:10 | NUR ---
[facility] NOTIFIED OF PATIENT LEAVING AMA.
--- NOTE | 2017-08-26 13:16 | NUR ---
CM NOTE CONCURRENT REVIEW FAXED TO [facility] / FAX# [phone], PH# [phone] MO EXT 9 ALIE EXT [phone]
--- NOTE | 2017-08-26 14:51 | NUR ---
1415 RECEIVED VM FROM PRIETO SINGLETARY AT [facility] REGARDING PLACEMENT FOR PT. CALL BACK NUMBER IS [phone] EXT [phone]
== END 2017-08-26 13:10 | disposition left against medical advice (07) | DRG 420 ==
LOC: MED 15:36 → MTU 16:22
PROVIDERS: ADMIT Family Medicine Sports Medicine; ATTEND Family Medicine Sports Medicine
DX: E11.65 Type 2 diabetes mellitus with hyperglycemia (principal); N17.0 Acute kidney failure with tubular necrosis; G93.41 Metabolic encephalopathy; E43 Unspecified severe protein-calorie malnutrition; D68.59 Other primary thrombophilia; E11.69 Type 2 diabetes mellitus with other specified complication; F03.90 Unspecified dementia, unspecified severity, without behavioral disturbance, psychotic disturbance, mood disturbance, and anxiety; E11.51 Type 2 diabetes mellitus with diabetic peripheral angiopathy without gangrene; E83.42 Hypomagnesemia; F02.80 Dementia in other diseases classified elsewhere, unspecified severity, without behavioral disturbance, psychotic disturbance, mood disturbance, and anxiety; I10 Essential (primary) hypertension; F17.210 Nicotine dependence, cigarettes, uncomplicated; B37.9 Candidiasis, unspecified; E78.5 Hyperlipidemia, unspecified; Z53.21 Procedure and treatment not carried out due to patient leaving prior to being seen by health care provider; X58.XXXS Exposure to other specified factors, sequela; Z87.820 Personal history of traumatic brain injury; Z79.84 Long term (current) use of oral hypoglycemic drugs; Z59.0 Homelessness; Z88.8 Allergy status to other drugs, medicaments and biological substances; S06.890S Other specified intracranial injury without loss of consciousness, sequela
CPT/HCPCS: 36415; 70450; 71045; 76700; 80048; 80076; 80305; 81003; 82948; 83735; 84100; 85025; 87081; 93880; 93925; 93970; 99285; J1630; J1815; Q0092